=== PATIENT | female | born 1945 | race Caucasian/White ===

== ENCOUNTER 2020-10-14 12:00 | Emergency (ER) | payer MEDICARE, OTHER ==
[~2020-10-14 12:00] MED LIST: ASPIRIN EC81 MG PO; EFFEXOR XR37.5 MG PO; EVISTA60 MG PO; PRAVACHOL40 MG PO; TIMOLOL 0.5%-DO10 ML OU; TOLTERODINE TART4 MG PO; TOPROL XL100 MG PO; XALATAN2.5 ML OU
[2020-10-14 13:11] LABS: ALBUMIN 4.1 g/dL (3.4-5.0); BILIRUBIN - TOTAL 0.5 mg/dL (0.2-1.0); BUN/CREAT RATIO (CALC) 18.3 RATIO; CREATININE 0.71 mg/dL (0.51-0.95); GLOBULIN (CALCULATION) 3.6 g/dL; POTASSIUM 3.9 mmol/L (3.5-5.1); TOTAL PROTEIN 7.7 g/dL (6.4-8.2)
[2020-10-14 13:15] LABS: BASOPHIL 0.5 % (0-2); EOSINOPHIL 0.7 % (0-7); HCT 38.3 % (37.0-47.0); HGB 12.9 g/dl (12.5-16.0); LYMPHOCYTE 22.7 % (15-48); MCH 31.7 pg (25.0-31.0); MCHC 33.7 g/dL (32.0-36.0); MCV 94.1 fL (78.0-100.0); MONOCYTE 6.1 % (0-12); NEUTROPHIL 68.8 % (41-80); NRBC 0; PLT 242 K/uL (150-400); RBC 4.07 M/uL (4.20-5.40); RDW 12.9 % (11.5-14.0); WBC 8.7 K/uL (4.0-10.5)
[2020-10-14 13:20] LABS: BILIRUBIN NEGATIVE (NEGATIVE); BLOOD NEGATIVE Ery/uL (NEGATIVE); CLARITY CLEAR (CLEAR); COLOR YELLOW (YELLOW); GLUCOSE (U) NORMAL (NORMAL); LEUKOCYTES NEGATIVE Leu/uL (NEGATIVE); NITRITE NEGATIVE (NEGATIVE); PROTEIN TRACE (LOW) mg/dL (NEGATIVE); UROBILINOGEN 0.2 mg/dL (0.2-1.0); pH 7.5 (5.0-9.0)
[2020-10-14 13:39] LABS: BACTERIA TRACE
[2020-10-14 13:56] LABS: LACTIC ACID 2.7 mmol/L (0.4-1.9)
[2020-10-14] MEDS ORDERED: ONDANSETRON ODT4 MG PO (16:59)
== END 2020-10-14 17:11 | disposition home or self-care (01) ==
LOC: FER 12:00
PROVIDERS: Emergency Medicine
DX: R11.2 Nausea with vomiting, unspecified (principal); R19.7 Diarrhea, unspecified; R10.84 Generalized abdominal pain; I10 Essential (primary) hypertension; E78.5 Hyperlipidemia, unspecified; Z79.899 Other long term (current) drug therapy
CPT/HCPCS: 36415; 80053; 81001; 83605; 83690; 84484; 85025; 87040; 87088; 93005; J2405; J3490; J7030; Q9967

== ENCOUNTER 2021-10-16 17:31 | Emergency (ER) | payer MEDICARE, OTHER ==
[~2021-10-16 17:31] MED LIST changes: +ONDANSETRON ODT4 MG PO
[2021-10-16 17:44] LABS: BASOPHIL 0.5 % (0-2); EOSINOPHIL 1.2 % (0-7); HCT 37.5 % (37.0-47.0); HGB 12.2 g/dl (12.5-16.0); LYMPHOCYTE 44.1 % (15-48); MCH 31.2 pg (25.0-31.0); MCHC 32.5 g/dL (32.0-36.0); MCV 95.9 fL (78.0-100.0); MONOCYTE 7.2 % (0-12); MPV 11.6 fL (6.0-9.5); NEUTROPHIL 46.8 % (41-80); NRBC 0; RBC 3.91 M/uL (4.20-5.40); RDW 12.9 % (11.5-14.0); WBC 8.4 K/uL (4.0-10.5)
[2021-10-16 18:10] LABS: ALBUMIN 3.7 g/dL (3.4-5.0); BILIRUBIN - TOTAL 0.1 mg/dL (0.2-1.0); BUN/CREAT RATIO (CALC) 19.5 RATIO; CREATININE 0.87 mg/dL (0.51-0.95); GLOBULIN (CALCULATION) 3.4 g/dL; POTASSIUM 3.5 mmol/L (3.5-5.1); TOTAL PROTEIN 7.1 g/dL (6.4-8.2)
[2021-10-16 18:30] LABS: PLT 259 K/uL (150-400)
[2021-10-16 19:44] LABS: BILIRUBIN NEGATIVE (NEGATIVE); BLOOD NEGATIVE Ery/uL (NEGATIVE); CLARITY CLEAR (CLEAR); COLOR YELLOW (YELLOW); GLUCOSE (U) NORMAL (NORMAL); LEUKOCYTES TRACE Leu/uL (NEGATIVE); NITRITE NEGATIVE (NEGATIVE); PROTEIN NEGATIVE (NEGATIVE); UROBILINOGEN 0.2 mg/dL (0.2-1.0)
[2021-10-16 19:45] LABS: AMPHETAMINES NEGATIVE (NEGATIVE); BARBITURATES NEGATIVE (NEGATIVE); ECSTASY (MDMA) NEGATIVE (NEGATIVE); MARIJUANA (THC) NEGATIVE (NEGATIVE); METHADONE NEGATIVE (NEGATIVE); OPIATES NEGATIVE (NEGATIVE); OXYCODONE NEGATIVE (NEGATIVE)
[2021-10-16 19:54] LABS: BACTERIA TRACE
== END 2021-10-16 20:33 | disposition home or self-care (01) ==
LOC: FER 17:31
PROVIDERS: Emergency Medicine
DX: F10.129 Alcohol abuse with intoxication, unspecified (principal); R55 Syncope and collapse; Y90.1 Blood alcohol level of 20-39 mg/100 ml
CPT/HCPCS: 36415; 70450; 80053; 80305; 81001; 85025; 87088; 93005; G0480; J2405